=== PATIENT | male | born 1955 | race Caucasian/White ===

== ENCOUNTER 2023-12-27 10:09 | Outpatient (OUT) | payer MEDICARE, OTHER, SELFPAY ==
--- NOTE | 2023-12-27 10:13 | VEIN_ITS ---
Patient Name: SHAHNAZ RENNER MR#: [id number] : 1955 Exam Date: 12/27/2023 Ordering Doctor: DR MICHAEL RUDD M.D. RADIOLOGY REPORT PROCEDURE: [facility] [place] - OFFICE VISIT INITIAL COMPARISON: None. PROGRESS NOTES: 60-year-old male who presents with a long history of lower extremity varicose veins. The patient also complains of focal right lateral lower leg pain a seen from the knee to the mid-calf. The patient has had a complete workup by neurology and by orthopedic surgery with no abnormalities found on the right lower leg. The patient describes the pain as aching burning and throbbing rating the pain as a 6 on a scale of 1-10. The patient's symptoms are exacerbated by prolonged sitting and standing and are partially relieved by rest, leg elevation and over the counter ibuprofen. The patient is currently retired but did have a job requiring him to be on his feet most of his life. The patient denies any signs and symptoms to suggest arterial ischemia. The patient describes a family history significant for prostate cancer and heart disease in his father. The patient drinks alcohol occasionally. The patient continues to smoke intermittently with approximately 20-30 pack year smoking history. The last time the patient smoke was approximately 1 month ago. Current medical conditions are significant for hypercholesterolemia, prostate cancer and hepatitis C. Past surgical history significant for left cheek reconstruction secondary to trauma 40 years ago playing football and a left knee replacement. No history of deep venous thrombus or pulmonary embolus. See separate history and physical for medication list. No prior treatment for varicose or spider veins. No prior use of compression stockings. After review of nurse notes, history and physical exam I discussed at length the pathophysiology of venous hypertension and possible treatments, therapies and strategies available. We discussed at length the importance of elevating the lower extremities above the level of the heart, increased physical activity and compression stocking use. We discussed surgical interventions including ligation and stripping and phlebectomy. We discussed intravenous laser ablation and micro foam chemical ablation at length. The patient was informed that he should wear compression stockings for at least 12 weeks and report back before any additional decisions can be made. Risks benefits and alternatives were discussed. The patient's questions were answered Ultrasound venous reflux study performed the same day was discussed at length with the patient. The report demonstrates moderate bilateral great saphenous vein venous insufficiency. Moderate bilateral deep vein reflux. Incompetent right leg perforating vein in the region of the patient's focal right lower leg pain. PHYSICAL EXAM: The right leg demonstrates scattered varicose veins. No significant reticular or spider veins. No subcutaneous edema, ulceration or hemosiderin staining. The left leg demonstrates scattered varicose veins. No significant reticular or spider veins. No subcutaneous edema, ulceration or hemosiderin staining. Both thighs, legs and feet were symmetrically warm to the touch. Good posterior tibial and dorsalis pedis pulses were present bilaterally. VEIN/VC Facility NEW [facility] IMPRESSION: 1. Moderate bilateral great saphenous vein venous insufficiency 2. Bilateral lower extremity varicose veins 3. No definite lower extremity subcutaneous edema 4. No definite flow significant arterial disease 5. CEAP: C2, Ep, Asp, Pr PLAN: 1. Bilateral thigh-high compression stockings 20-30 mm 2. Follow-up in 3 months Nurse notes, history and physical were reviewed and confirmed, see attached forms. The nurse was present throughout the physical exam and consultation Dictated by: Michael Rudd MD on 12/27/2023 at 12:43 Approved by: Michael Rudd MD on 12/27/2023 at 12:58
--- NOTE | 2023-12-27 10:13 | VEIN_ITS ---
Patient Name: SHAHNAZ RENNER MR#: [id number] : 1955 Exam Date: 12/27/2023 Ordering Doctor: DR MICHAEL RUDD M.D. RADIOLOGY REPORT PROCEDURE: VC EXT VENOUS REFLUX [facility] LMTD COMPARISON: None. INDICATIONS: I83.813 Pain due to varicose veins of bilateral legs TECHNIQUE: Duplex imaging of the lower extremity to assess the deep and superficial venous system for the presence of deep or superficial venous incompetence and to document the location and severity of disease. The study includes evaluation of the great saphenous vein (GSV), anterior accessory saphenous vein (AASV) and small saphenous vein (SSV). Patient scanned in reverse Trendelenburg and standing. FINDINGS: RIGHT LOWER EXTREMITY: Saphenofemoral Junction Reflux: Yes 10.2mm 4.1 sec GSV: Diam (mm) Reflux/ Time (sec) Proximal Thigh 8.7 Yes 4.4 Mid Thigh 6.7 Yes 0.7 Distal Thigh 6.2 Yes 0.5 Prox Calf 5.4 Yes 1.5 Mid Calf 5.5 Yes 0.7 Saphenopopliteal Junction Reflux: 2.5mm No SSV: Proximal Calf 1.9 No Mid Calf 2.0 No AASV: Proximal Thigh 4.2 Yes 0.3 Mid Thigh 2.9 Yes 0.4 Distal Thigh Thrombi: No acute or chronic thrombus. Compressibility: Normal. Flow: Moderate reflux in femoral vein. Preforator: Distal medial lower leg 3.2 mm with 0.3s reflux. Proximal/lateral lower leg area of pain 2.1 mm with 1.1s reflux. Tech Note: Enlarged lymph node in right groin measures 3.4 x 1.9 x 1.2 cm. Incompetent varicose vein proximal medial lower leg measures 4.2 mm with 0.7s reflux. LEFT LOWER EXTREMITY: Saphenofemoral Junction Reflux: Yes 10.5 mm 1.7 sec GSV: Diam (mm) Reflux/Time (sec) Proximal Thigh 6.8 Yes 1.1 Mid Thigh 6.2 Yes 1.0 Distal Thigh 4.7 Yes 0.6 Prox Calf 3.7 Yes 4.4 Mid Calf 2.8 Yes 1.8 Saphenopopliteal Junction Relux: 1.7 mm No SSV: Proximal Calf 1.5 Yes 0.4 Mid Calf 2.5 No AASV: Not present Thrombi: No acute or chronic thrombus. Compressibility: Normal. Flow: Moderate deep venous reflux. Motor Mechanic: Distal medial lower leg measures 3.6 mm with 0.3s reflux. Proximal medial lower leg measures 2.9 mm with 1.2s reflux. Tech Note: Incompetent varicose vein distal medial thigh measures 2.4 mm with 0.7s reflux. CONCLUSION: 1. Moderate bilateral great saphenous vein venous insufficiency with dilatation and saphenofemoral junction reflux 2. Moderate bilateral deep vein reflux 3. Enlarged right inguinal lymph node Dictated by: Michael Rudd MD on 12/27/2023 at 11:35 Approved by: Michael Rudd MD on 12/27/2023 at 11:49
== END 2023-12-27 10:10 | disposition home or self-care (01) ==
LOC: VC 10:09
PROVIDERS: PCP Radiology Diagnostic Radiology; Visit Provider Radiology Diagnostic Radiology
DX: I83.813 Varicose veins of bilateral lower extremities with pain (principal)
CPT/HCPCS: 93970; G0463